=== PATIENT | male | born 1975 | race Caucasian/White ===

== ENCOUNTER 2016-10-01 22:37 | Emergency (ER) | payer BC ==
[~2016-10-01] VITALS: Ht 193 cm; Wt 105.0 kg
[2016-10-01 22:46] VITALS: BP 173/115; PULSE 112; RESP 18; TEMP 98.8; O2SAT 95
[2016-10-01] MEDS ORDERED: CLON0.1T PO (23:45)
[2016-10-01] MEDS ORDERED: METO25TA3 PO (23:45)
[2016-10-01] MEDS ORDERED: HYDR12.57 PO (23:45)
[2016-10-01 23:53] VITALS: BP 157/76; PULSE 107
[2016-10-02] MEDS ORDERED: CYCLOBENZAPRINE HCL 10 MG TAB PO ONE (00:15)
[2016-10-02] MEDS ORDERED: MORPHINE SULFATE 8 MG/ML INJ IV PUSH ONE (00:15)
[2016-10-02] MEDS ORDERED: ONDANSETRON HCL 4 MG/2 ML VIAL IV PUSH ONE (00:15)
[2016-10-02 00:35] VITALS: BP 171/99; PULSE 89; O2SAT 93
[2016-10-02] MEDS ORDERED: PRED20 PO (01:08)
[2016-10-02] MEDS ORDERED: HYDR-3366 PO (01:08)
--- NOTE | 2016-10-02 01:09 | PD ---
HPI Chief Complaint: Back/ Neck Pain or Injury Time Seen by Provider: 23:45 Travel History International Travel<30 days: No Contact w/Intl Traveler<30days: No Traveled to known affect area: No History of Present Illness HPI Patient is a 40 year old male presents to the ER with onset of low back pain over the past 24 hours. Patient states fairly gradual in onset. Has had some numbness and pins and needles down the right leg as well. Denies saddle anesthesia, difficulty urinating, nausea/vomiting/diarrhea. 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 [facility] Past Medical History Hypertension: Yes Influenza Vaccination: No Past Surgical History Surgical History: No Previous Surgery Social History Alcohol Use: Yes (socially) Tobacco Use: Yes (1/2 ppd) Substance Use: No Allergies-Medications (Allergen,Severity, Reaction): Coded Allergies: No Known Allergies (Verified , 10/01/16) Reported Meds & Prescriptions Reported Meds & Active Scripts Active Flexeril (Cyclobenzaprine HCl) 10 Mg Tab 10 Mg PO TID PRN Ranitidine (Ranitidine HCl) 150 Mg Tab 150 Mg PO BID Prednisone (48) 10 mg tab Dose Pack (Prednisone) 10 Mg Dspk 10 Mg PO DIRECTED Meloxicam 7.5 Mg Tab 7.5 Mg PO DAILY 14 Days Prednisone 20 Mg Tab 60 Mg PO DAILY 5 Days Reported Hydrochlorothiazide 12.5 Mg Cap 12.5 Mg PO DAILY Metoprolol Tartrate 25 Mg Tab 25 Mg PO DAILY Clonidine (Clonidine HCl) 0.1 Mg Tab 0.1 Mg PO BID Review of Systems Except as stated in HPI: all other systems reviewed are Neg Physical Exam Narrative GENERAL: WD/WN uncomfortable appearance. SKIN: Warm and dry. HEAD: Normocephalic. EYES: No scleral icterus. No injection or drainage. NECK: Supple, trachea midline. No JVD or lymphadenopathy. CARDIOVASCULAR: Regular rate and rhythm without murmurs, gallops, or rubs. RESPIRATORY: Breath sounds equal bilaterally. No accessory muscle use. GASTROINTESTINAL: Abdomen soft, non-tender, nondistended. MUSCULOSKELETAL: No cyanosis, or edema. Tenderness at right SI joint and right sided low back. Not involving midline. Straight leg raise positive. 5/5 strength in all muscle groups of bilateral lower extremities. 2+ bilaterally equal DP/PT pulses. BACK: Nontender without obvious deformity. No CVA tenderness. Data Data Last Documented VS Orders Morphine Inj (Morphine Inj) (10/02/16 00:15) Ondansetron Inj (Zofran Inj) (10/02/16 00:15) Cyclobenzaprine (Flexeril) (10/02/16 00:15) Oxycodone-Acetamin 5-325 Mg (Percocet (10/02/16 01:30) MDM Medical Decision Making Medical Screen Exam Complete: Yes Emergency Medical Condition: Yes Differential Diagnosis Sciatica, low back pain, DDD Narrative Course Patient roomed in ED, appears to have sciatica. There is no indication for emergent imaging. No convincing evidence for cauda equina. Discussed need for follow up with PCP and return to ED criteria. WIll likely need outpatient MRI. Diagnosis Primary Impression: Low back pain Qualified Code: M54.41 - Acute right-sided low back pain with right-sided sciatica Med/Other Pt SpecificInfo: Prescription(s) given Scripts Prednisone 20 Mg Tab60 Mg PO DAILY 5 Days Ref 0 Prov:Kennedy Pretty MD 10/02/16 Disposition: 01 DISCHARGE HOME Condition: Stable Kennedy Pretty MD Oct 02, 2016 01:09
[2016-10-02] MEDS ORDERED: oxyCODONE/ACETAMINOPHEN 5 MG/325 MG TAB PO ONE (01:30)
[2016-10-02 02:30] VITALS: RESP 16
== END 2016-10-02 01:40 | disposition home or self-care (01) ==
LOC: PHED 22:37
DX: M54.41 Lumbago with sciatica, right side (principal); F17.200 Nicotine dependence, unspecified, uncomplicated
CPT/HCPCS: 96374; 96375; 99283; J2270; J2405

== ENCOUNTER 2016-10-06 19:59 | Emergency (ER) | payer BC ==
[~2016-10-06 19:59] MED LIST: CLON0.1T PO; HYDR-3366 PO; HYDR12.57 PO; METO25TA3 PO; PRED20 PO
[2016-10-06 20:14] VITALS: BP 140/94; PULSE 88; RESP 20; TEMP 98.9; O2SAT 96
[2016-10-06] MEDS ORDERED: RANI150T PO (20:42)
[2016-10-06] MEDS ORDERED: PRED10PA2 PO (20:42)
[2016-10-06] MEDS ORDERED: CYCL1TAB29 PO (20:42)
[2016-10-06] MEDS ORDERED: MELO7.5T4 PO (20:42)
--- NOTE | 2016-10-06 20:42 | PD ---
HPI Chief Complaint: Back/ Neck Pain or Injury Time Seen by Provider: 20:22 Travel History International Travel<30 days: No Contact w/Intl Traveler<30days: No Traveled to known affect area: No History of Present Illness HPI This is a 40-year-old male who presents to the emergency department with 1 week of right sided leg pain and back pain. He describes a dull aching pain in his right hip and buttock area that radiates to his groin and radiates down to his right calf. He describes the radiation as a shooting pain. He has intermittent paresthesias in his right foot. His pain is worse with moving and worse with laying on his right side. He was seen in the emergency department one week ago and prescribed Lortab and prednisone which she's been taking but his pain has only been getting worse. He went to the [place] today which aggravated his pain. He did see a primary care physician for this and she arranged an MRI which is scheduled for tomorrow. He denies any urinary or bowel incontinence. He denies any fevers, chills or recent history of IV drug use. PFSH Past Medical History Hypertension: Yes Social History Alcohol Use: Yes (socially) Tobacco Use: Yes (1/2 ppd) Substance Use: No Allergies-Medications (Allergen,Severity, Reaction): Coded Allergies: No Known Allergies (Verified , 10/01/16) Reported Meds & Prescriptions Reported Meds & Active Scripts Active [place] (Hydrocodone-Acetaminophen) 10-325 Mg Tab 1 Tab PO Q6H PRN Prednisone 20 Mg Tab 60 Mg PO DAILY 5 Days Reported Hydrochlorothiazide 12.5 Mg Cap 12.5 Mg PO DAILY Metoprolol Tartrate 25 Mg Tab 25 Mg PO DAILY Clonidine (Clonidine HCl) 0.1 Mg Tab 0.1 Mg PO BID Review of Systems Except as stated in HPI: all other systems reviewed are Neg Physical Exam Narrative GENERAL:Well appearing, no acute distress SKIN: Focused skin assessment warm and dry. HEAD: Atraumatic. Normocephalic. EYES: Pupils equal and round. No injection or drainage. ENT: Moist mucous membranes NECK: Trachea midline. CARDIOVASCULAR: Regular rate and rhythm. No murmur appreciated. 2+ bilateral DP pulses with normal capillary refill. RESPIRATORY: Clear to auscultation. Breath sounds equal bilaterally. GASTROINTESTINAL: Abdomen soft, non-tender, nondistended. MUSCULOSKELETAL: No obvious deformities. NEUROLOGICAL: Awake and alert. No obvious cranial nerve deficits. 5 out of 5 strength in the bilateral lower extremities. Radiating pain with flexion at the right hip. PSYCHIATRIC: Appropriate mood and affect; insight and judgment normal. Data Data Last Documented VS Vital Signs Date Time Temp Pulse Resp B/P Pulse Ox O2 Delivery O2 Flow Rate FiO2 10/06/16 20:14 98.9 88 20 140/94 96 MDM Medical Decision Making Medical Screen Exam Complete: Yes Emergency Medical Condition: Yes Differential Diagnosis Herniated disc, sciatica, sacroiliitis, cauda equina syndrome Narrative Course This is a 40-year-old male who presents to the emergency department with pain consistent with lumbosacral radiculopathy. He has no red flags for cauda equina syndrome. He has a normal neurologic exam. I had a long conversation with the patient regarding the pros and cons of imaging as well as the benefits of physical therapy and the expected duration of his illness. Plan for meloxicam, continued prednisone, and Flexeril. Patient will follow-up with his primary care physician later this week. Diagnosis Primary Impression: Lumbosacral radiculopathy Patient Instructions: General Instructions Additional Instructions: If you develop weakness of your legs, difficulty walking, numbness of your legs or your genital or rectal area, loss of your bowel or bladder, or difficulty urinating return to the emergency department immediately. Followup with your primary care physician in one week if your symptoms have not improved. Med/Other Pt SpecificInfo: Prescription(s) given Scripts Cyclobenzaprine (Flexeril)10 Mg Tab10 Mg PO TID PRN (SPASM) #15 TAB Ref 0 Prov:Summer Roman MD 10/06/16 Ranitidine 150 Mg Bav364 Mg PO BID #60 TAB Ref 0 Prov:Summer Roman MD 10/06/16 Prednisone (48) 10 mg tab Dose Pack 10 Mg Dspk10 Mg PO DIRECTED #1 DSPK Ref 0 Prov:Summer Roman MD 10/06/16 Meloxicam 7.5 Mg Tab7.5 Mg PO DAILY 14 Days Ref 0 Prov:Summer Roman MD 10/06/16 Disposition: 01 DISCHARGE HOME Condition: Stable Summer Roman MD Oct 06, 2016 20:42
[2016-10-06] MEDS ORDERED: ORPHENADRINE INJ 60 MG/2 ML AMP IM ONE (20:45)
[2016-10-06] MEDS ORDERED: KETOROLAC TROMETHAMINE 60 MG/2 ML (IM) VIAL IM ONE (20:45)
== END 2016-10-06 21:10 | disposition home or self-care (01) ==
LOC: PHED 19:59
DX: M54.17 Radiculopathy, lumbosacral region (principal)
CPT/HCPCS: 96372; 99283; J1885; J2360